=== PATIENT | female | born 1950 | race Caucasian/White ===

== ENCOUNTER → 2016-04-13 | Outpatient (CLI) | payer OTHER ==
--- NOTE | 2016-04-13 09:40 | DX ---
PA and Lateral Chest April 13, 2016 Reason for examination: Shortness of breath in a 65-year-old female; comparison to the prior study [facility] 2008. Findings: No focal pulmonary consolidation is seen. Mild hyperexpansion is noted with flattening of t he hemidiaphragms. Mild peribronchial thickening is also seen. The heart is enlarged. Pulmonary vascularity is mildly prominent. No pleural effusions are seen. Impression: 1. Suspect low-grade congestive heart failure without pulmonary edema. 2. Query airways disease.
== END ==
LOC: FIMAGING 07:23
PROVIDERS: ATTEND Internal Medicine Pulmonary Disease
DX: R06.00 Dyspnea, unspecified (principal)

== ENCOUNTER → 2016-10-07 | Outpatient (CLI) | payer OTHER | LOC: FIMAGING 07:32 | PROVIDERS: ATTEND Family Medicine | DX: Z12.31 Encounter for screening mammogram for malignant neoplasm of breast (principal) | CPT/HCPCS: G0202 ==

== ENCOUNTER 2017-06-01 06:07 | Day surgery (SDC) | payer OTHER ==
[2017-06-01] MEDS ORDERED: ceFAZolin 2 GM/SWFI 2 GM/20 ML SYR IVP ONE (06:18)
[2017-06-01] MEDS ORDERED: LR 1,000 ML IV ONE (06:19)
[2017-06-01] MEDS ORDERED: LIDOCAINE 1% 2 ML INJ ID PRN (06:19)
[2017-06-01 07:00] VITALS: PULSE 87
[2017-06-01] MEDS ORDERED: BUPIVACAINE 0.5% 30 ML SDV ONE (07:03)
--- NOTE | 2017-06-01 07:33 | PDHPUP ---
History & Physical Update H&P update statement: This history and physical update is based on an assessment of the patient which was completed after admission or registration (within 24 hours), but prior to the surgery/procedure. H&P update: H&P reviewed & patient examined, no change in patient's condition since H&P completed
--- NOTE | 2017-06-01 07:48 | PDANEPAE ---
ANE History of Present Illness ventral hernia repair ANE Past Medical History - Cardiovascular History Hx Hypertension: Yes Hx Arrhythmias: Yes Hx Chest Pain: No Hx Coronary Artery / Peripheral Vascular Disease: No Hx CHF / Valvular Disease: No Hx Palpitations: No Cardiovascular History Comment: chronic Afib - Pulmonary History Hx COPD: No Hx Asthma/Reactive Airway Disease: No Hx Recent Upper Respiratory Infection: No Hx Oxygen in Use at Home: No Hx Sleep Apnea: Yes Sleep Apnea Screening Result - Last Documented: Positive Pulmonary History Comment: DIAMOND with C-PAP - Neurologic History Hx Cerebrovascular Accident: No Hx Seizures: No Hx Dementia: No - Endocrine History Hx Diabetes: No Hypothyroid: No Hyperthyroid: No Obesity: severe - Renal History Hx Renal Disorders: No - Liver History Hx Hepatic Disorders: No - Neurological & Psychiatric Hx Hx Neurological and Psychiatric Disorders: Yes Neurological / Psychiatric History Comment: systemic lupus in remmision - Cancer History Hx Cancer: No - Congenital Disorder History Hx Congenital Disorders: Yes Congenital History Comment: Systemic lupus maternal side. heart disease - GI History GERD: no Hx Gastrointestinal Disorders: No - Other Health History Other Health History: scoliosis - Chronic Pain History Chronic Pain: Yes (lower back) - Surgical History Prior Surgeries: back surgery L3,4,5 laminectomy with csf leak. tubal ligation. tonsillectomy and adenoidectomy ANE Review of Systems Review of Systems: - Exercise capacity METS (RN): 3 METS ANE Patient History - Allergies Allergies/Adverse Reactions: codeine Allergy (Intermediate, Verified 05/25/17 11:58) Other-Enter Comments cephalexin [From Keflex] Allergy (Mild, Verified 06/01/17 06:50) Rash - Home Medications Home Medications: Aspirin [Aspirin 81mg (OTC)] 06/08/13 [Last Taken 05/30/17 20:00] Hydrochlorothiazide [HCTZ (*)] 06/08/13 [Last Taken 05/31/17 06:00] Benefiber 10/10/15 [Last Taken 05/31/17 06:00] CALCIUM 600 + VIT D TABLET 10/10/15 [Last Taken 05/31/17 06:00] Eliquis 10/10/15 [Last Taken 05/29/17 20:00] Furosemide 10/10/15 [Last Taken 05/31/17 06:00] Metoprolol Succinate 10/10/15 [Last Taken 05/31/17 20:00] Miralax 17 gm (*) 10/10/15 [Last Taken 05/31/17 06:00] Tylenol 10/10/15 [Last Taken 05/31/17 20:00] Tylenol PM (*) 10/10/15 [Last Taken 10/09/15 21:00] Ubidecarenone 10/10/15 [Last Taken 05/31/17 06:00] Vitamin B Complex 10/10/15 [Last Taken 05/31/17 06:00] Vitamin C 10/10/15 [Last Taken 05/31/17 06:00] Gabapentin [Neurontin 300 MG (*)] 06/01/17 [Last Taken 05/31/17 20:00] Herbals/Supplements -Info Only 06/01/17 [Last Taken 05/31/17 06:00] - NPO status NPO Since - Liquids (Date): 05/31/17 NPO Since - Liquids (Time): 22:00 NPO Since - Solids (Date): 05/31/17 NPO Since - Solids (Time): 17:30 - Smoking Hx Smoking Status: Never smoked - Family Anes Hx Family Hx Anesthesia Complications: none ANE Labs/Vital Signs - Vital Signs Blood Pressure: 150/83 Heart Rate: 87 Respiratory Rate: 17 O2 Sat (%): 96 Height: 167.64 cm Weight: 116.573 kg ANE Physical Exam - Airway Neck exam: FROM Mallampati Score: Class 2 Mouth exam: normal dental/mouth exam - Pulmonary Pulmonary: no respiratory distress - Cardiovascular Cardiovascular: irregularly irregular - ASA Status ASA Status: III ANE Anesthesia Plan Anesthesia Plan: general endotracheal anesthesia
[2017-06-01] MEDS ORDERED: MIDAZOLAM 2 MG/2 ML VIAL IVP ONE (07:54)
[2017-06-01] MEDS ORDERED: MIDAZOLAM 2 MG/2 ML VIAL ONE (07:56)
[2017-06-01] MEDS ORDERED: REMIFENTANIL HCL 1 MG VIAL ONE (07:57)
[2017-06-01] MEDS ORDERED: DEXAMETHASONE 4 MG/ML VIAL ONE (07:58)
[2017-06-01] MEDS ORDERED: ROCURONIUM 50 MG/5 ML VIAL ONE (07:58)
[2017-06-01] MEDS ORDERED: PROPOFOL/EMULSION 500 MG/50 ML BOTTLE IV ONE (07:58)
[2017-06-01] MEDS ORDERED: SUCCINYLCHOLINE CHLORIDE 200 MG/10 ML SYR IVP ONE (08:14)
[2017-06-01] MEDS ORDERED: ONDANSETRON 4 MG/2 ML VIAL ONE (08:35)
[2017-06-01] MEDS ORDERED: fentaNYL 100 MCG/2 ML INJ IVP PRN (08:39)
[2017-06-01] MEDS ORDERED: NALOXONE HCL 0.4 MG/ML INJ IVP PRN (08:39)
--- NOTE | 2017-06-01 08:57 | POSTOPPROG ---
Post Op Note Date of Operation: 06/01/17 Surgeon: Luke Cha Early Years Teacher: Deanna Houston Anesthesiologist: Luke Farmer Anesthesia: GET(General Endotracheal) Pre-op Diagnosis: umbilical hernia Post-op Diagnosis: same Procedure: open umbilical hernia repair with mesh Findings: 2.5 cm defect Inf/Abcess present in the surg proc area at time of surgery?: No EBL: Minimal Complications: none
[2017-06-01 09:47] VITALS: TEMP 97.5
[2017-06-01] MEDS ORDERED: oxyCODONE IR 5 MG TAB PO PRN (10:01)
[2017-06-01] MEDS ORDERED: ONDANSETRON 4 MG/2 ML VIAL IVP PRN (10:01)
--- NOTE | 2017-06-01 10:03 | POSTANESTH ---
Post Anesthetic Evaluation Cardiovascular Status: Similar to Pre-Op Cond Respiratory Status: Similar to Pre-op Cond. Level of Consciousness/Mental Status: Can Participate in Eval Pain Control: Adequate, Prn Tx Ordered Nausea/Vomiting Control: Adequate, Prn Tx Ordered Complications Possibly Related to Anesthesia: None Noted (Difficult laryngoscopy discussed with patient, questions answered.)
[2017-06-01 10:23] VITALS: RESP 14
[2017-06-01 10:46] VITALS: O2SAT 92
[2017-06-01 11:27] VITALS: BP 117/58
--- NOTE | 2017-06-05 18:07 | GOP ---
[f rep st] OPERATIVE REPORT DATE OF OPERATION: SURGEON: Luke Cha MD PREOPERATIVE DIAGNOSIS: Symptomatic umbilical hernia. POSTOPERATIVE DIAGNOSIS: Symptomatic umbilical hernia. PROCEDURE PERFORMED: Open umbilical hernia repair with mesh. FINDINGS: Patient was found to have a 3 cm umbilical defect containing primarily properitoneal and o mental tissue. DESCRIPTION OF PROCEDURE: Patient was taken to the operating room where she received a satisfactory general endotracheal anesthesia. She was placed in the supine position and prepped and draped in the usual sterile fashion. An infraumbilical incision was made and carried through the subcutaneous tissu e. Hemostasis was obtained with electrocautery. Dissection extended down to the fascia. The umbilical hernia sac was dissected free circumferentially and then opened. Its contents were reduced. It was d issected off the back of the umbilical skin. Excess sac was excised. A subfascial preperitoneal mesh was placed and anchored around the periphery of the incision with interrupted 0 Ethibond mattress sut ures. The fascia itself was then approximated with interrupted #1 Ethibond [id number] sutures. W ound was infiltrated with 0.5% Marcaine. Hemostasis was assured. Subcu was closed with a running 3-0 Vicryl suture and the skin with a 4-0 Monocryl subcuticular stitch. There were no complications. She tolerated the procedure well and was taken to the recovery room in good condition. /[id number]/MODL
== END 2017-06-01 11:25 | disposition home or self-care (01) ==
LOC: FSGY 06:07
PROVIDERS: ATTEND Surgery
PROC: 0WUF0JZ Supplement Abdominal Wall with Synthetic Substitute, Open Approach (ICD-10-PCS; principal; 2017-06-01 08:00)
DX: K42.9 Umbilical hernia without obstruction or gangrene (principal); I48.91 Unspecified atrial fibrillation; Z79.01 Long term (current) use of anticoagulants; M32.9 Systemic lupus erythematosus, unspecified
CPT/HCPCS: C1781; J0330; J0690; J1100; J2250; J2405; J2704

== ENCOUNTER 2017-08-12 18:00 | Emergency (ER) | payer OTHER ==
[2017-08-12 18:08] VITALS: BP 153/113
--- NOTE | 2017-08-12 18:35 | EDPHY ---
H & P Time Seen by Provider: 08/12/17 18:13 HPI/ROS: HPI Ground level fall, left hand and knee pain. 66-year-old female by private vehicle with her . 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 She was entering the hospital through the ambulance [facility] on Wednesday morning when she tripped and fell on the cement. She fell onto her left side. She complains of pain that has persisted in her left knee, her distal left middle finger and the left side of her ribs. No cough or difficulty breathing. She is able to bear weight on her left knee. She does have a history of lupus and osteoarthritis in her hands. She does have chronic pain in her fingers because of this. She denies hitting her head. No loss of consciousness. Denies any weakness in her extremities. Denies any neck pain. ROS: Constitutional: No fever, no chills. No weakness. Eyes: No changes in vision. Respiratory: No cough. No shortness of breath. Cardiac: No chest pain, no palpitations. Gastrointestinal: No abdominal pain, no vomiting, no diarrhea. Genitourinary: No hematuria. Musculoskeletal: No back pain. No neck pain. As above. Skin: No rashes. No lacerations or abrasions. Neurological: No headache. No focal weakness or altered sensation. Past medical history: Atrial fibrillation, she is on Eliquis, hypertension, systemic lupus, osteoarthritis, lumbar surgery, tonsillectomy. Social history: She is here with her . Nonsmoker. No alcohol. Physical Exam: General Appearance: Alert, pleasant, no distress. This patient is responding to questions appropriately and in full sentences. This patient appears well- hydrated and well-nourished. Head: Normocephalic atraumatic. Face: Facial bones are stable on palpation. Eyes: Pupils equal and round and reactive to light, no pallor or injection. No lid erythema or edema. ENT, Mouth: Mucous membranes moist. Dentition is intact. No malocclusion of the jaw. No tongue lacerations or abrasions. Pharynx is clear. The bilateral nasal canals are clear. No septal hematoma. Respiratory: There are no retractions, lungs are clear to auscultation with good air movement bilaterally. Chest wall is stable to AP and lateral palpation. She has some subtle contusions, left lower lateral chest wall at the mid and anterior axillary line. There is tenderness on palpation over this area. No bony step-off or deformity noted on palpation. No soft tissue edema. The skin is closed. Cardiovascular: Regular rate and rhythm. No murmur. Gastrointestinal: Abdomen is soft and nontender, no masses, bowel sounds normal. Neurological: Motor sensory function is intact. Cranial nerves are normal. Cerebellar function intact. Skin: Warm and dry, no rashes. No lacerations, abrasions or contusions. Musculoskeletal: Neck is supple and nontender. The trachea is midline. No midline cervical, thoracic, lumbar or sacral tenderness on palpation. No flank tenderness on palpation. She has got some tenderness and swelling involving the distal in all phalangeal joint left hand middle finger dorsal aspect. There is also some ecchymosis isolated to this area. It is not significantly tender with axial compression. Bony and soft tissue changes secondary to her lupus and osteoarthritis noted. Bony aspects of the left hand and wrist are otherwise nontender on palpation. She has some mild tenderness to palpation and faint ecchymosis anterior lateral aspect of the left knee. No bony deformity or step-off noted on palpation of this area. No significant edema. The knee is stable to anterior and posterior drawer testing as well as valgus and varus stress testing. Extremities are symmetrical, full range of motion other than noted. All joints in the bilateral upper and bilateral lower extremities range without pain or impingement other than noted. No tenderness on palpation of the long bones in the bilateral upper and bilateral lower extremities other than noted. Psychiatric: No agitation. No depression. Database: EKG: Imaging: PA chest with left-sided rib series x-ray: No evidence of rib fracture, pneumothorax, pleural effusion. Interpreted by me. Left middle finger x-ray: Degenerative arthritis but no acute fracture noted. Interpreted by me. Left knee x-ray: Small effusion. No fracture, subluxation, dislocation. Interpreted by me. Procedures: Emergency department course: Vital signs reviewed. She is moderately hypertensive. Vital signs are otherwise normal. She was given 600 mg of ibuprofen orally. 7:20 p.m., patient re-evaluated. Resting comfortably at this time. Results of her x-rays were discussed with her and her . She feels comfortable going home at this time. I do not feel that she requires knee brace or a finger splint. She wants to try and type with that left middle finger. She has Vicodin and her has Percocet at home. I discussed dosing of this medication. Mostly to be taken at night. Follow-up and return to emergency department precautions were discussed with her and her . All of their questions were answered. She was discharged from the emergency department in good condition with her . Differential Diagnosis: The differential diagnosis on this patient includes but is not limited to left middle finger contusion versus sprain, left chest wall contusion, left knee contusion. Traumatic brain injury, cervical spine injury, other significant traumatic injury the noted unlikely. This represents a partial list of diagnoses considered. These considerations are based on history, physical exam , past history, reassessment and diagnostic testing. Smoking Status: Never smoked Constitutional: Initial Vital Signs Temperature (C) 36.9 C 08/12/17 18:06 Heart Rate 88 08/12/17 18:06 Respiratory Rate 16 08/12/17 18:06 Blood Pressure 153/113 H 08/12/17 18:06 O2 Sat (%) 94 08/12/17 18:06 O2 Delivery Mode Room Air Allergies/Adverse Reactions: codeine Allergy (Intermediate, Verified 08/12/17 18:04) Other-Enter Comments cephalexin [From Keflex] Allergy (Mild, Verified 08/12/17 18:04) Rash Home Medications: Medication Instructions Recorded Aspirin [Aspirin 81mg (OTC)] 06/08/13 Benefiber 10/10/15 CALCIUM 600 + VIT D TABLET 10/10/15 Eliquis 10/10/15 Furosemide 10/10/15 Metoprolol Succinate 10/10/15 Miralax 17 gm (*) 10/10/15 Tylenol 10/10/15 Tylenol PM (*) 10/10/15 Ubidecarenone 10/10/15 Vitamin B Complex 10/10/15 Vitamin C 10/10/15 Gabapentin [Neurontin 300 MG (*)] 06/01/17 Herbals/Supplements -Info Only 06/01/17 Medical Decision Making - Diagnostics Imaging Results: Imaging Impressions Finger X-Ray 08/12/17 18:19 Impression: 1. Erosive osteoarthritis. 2. No convincing acute osseous abnormality. Knee X-Ray 08/12/17 18:19 Impression: 1. Degenerative osteoarthrosis, with the greatest degree of involvement in the lateral patellofemoral compartment where there are secondary features suggestive of a chronic patellar tracking issue. 2. Small suprapatellar joint effusion, with no acute fracture observed. Ribs w/Chest X-Ray 08/12/17 18:19 Impression: 1. Stable cardiomegaly. 2. Minimal diskoid subsegmental atelectasis at the left lung base. 3. There is no rib fracture appreciated, nor is there evidence of a pleural effusion or pneumothorax. - Data Points Medications Given: Discontinued Medications Ibuprofen (Motrin) 600 mg PO EDNOW ONE Stop: 08/12/17 19:07 Last Admin: 08/12/17 19:08 Dose: 600 mg Departure - Departure Disposition: Home, Routine, Self-Care Clinical Impression: Contusion of left middle finger, Left knee sprain, Contusion of left chest wall Condition: Good Instructions: Knee Sprain (ED), Rib Fracture (ED) Additional Instructions: Read and follow provided instructions. I gave you some general instructions on rib fracture management. You do not have a rib fracture on your x-rays. However, these are good instructions for a chest wall contusion as well. Follow-up with your primary care physician on Wednesday for re-evaluation. You can weightbear on your right knee as tolerated. Vicodin and Percocet: You can take 1-2 every 4-6 hours as needed for pain. Return to the emergency department for worsening or uncontrolled pain, worsening swelling or discoloration of your finger or other serious concerns. Referrals: Mavis Cai MD [Primary Care Provider] - As per Instructions
[2017-08-12] MEDS ORDERED: IBUPROFEN 600 MG TAB PO ONE ×2 (19:05→19:06)
== END 2017-08-12 19:35 | disposition home or self-care (01) ==
DX: S20.20XA Contusion of thorax, unspecified, initial encounter (principal); S60.032A Contusion of left middle finger without damage to nail, initial encounter; S83.92XA Sprain of unspecified site of left knee, initial encounter; I10 Essential (primary) hypertension; Z79.82 Long term (current) use of aspirin; W01.0XXA Fall on same level from slipping, tripping and stumbling without subsequent striking against object, initial encounter; Y92.238 Other place in hospital as the place of occurrence of the external cause; Y99.0 Civilian activity done for income or pay; Y93.89 Activity, other specified

== ENCOUNTER → 2017-10-19 | Outpatient (CLI) | payer OTHER | DX: Z13.820 Encounter for screening for osteoporosis (principal); R29.6 Repeated falls; Z78.0 Asymptomatic menopausal state; Z79.01 Long term (current) use of anticoagulants ==